=== PATIENT | female | born 1950 | race American Indian/Alaskan Native ===

== ENCOUNTER 2017-11-21 00:36 | Emergency (ER) | payer MEDICARE ==
[2017-11-21 01:10] VITALS: BP 165/68
[2017-11-21] MEDS ORDERED: ASPIRIN PO ONE (01:11)
[2017-11-21] MEDS ORDERED: PEPCID IV ONE (01:26)
[2017-11-21] MEDS ORDERED: ULTRAM PO ONE (01:26)
[2017-11-21] MEDS ORDERED: ALUM-MAG HYDROX-SIMETH 200-200-20MG/5ML PO ONE (01:27)
[2017-11-21 01:45] LABS: Basophils # (Auto) 0.1 K/mm3 (0.0-0.1); Eosinophils % (Auto) 0.6 % (0.0-4.3); Hematocrit 33.2 % (30.3-42.9); Hemoglobin 11.3 gm/dl (10.1-14.3); Lymphocytes % (Auto) 29.5 % (13.4-35.0); Mean Corpuscular HGB Conc 34 % (30-34); Mean Corpuscular Hemoglobin 29 pg (28-32); Mean Corpuscular Volume 86 fl (79-97); Monocytes # (Auto) 0.5 K/mm3 (0.0-0.8); Monocytes % (Auto) 6.8 % (0.0-7.3); Platelet Count 236 K/mm3 (140-440); Red Blood Count 3.88 M/mm3 (3.65-5.03); Red Cell Distribution Width 14.4 % (13.2-15.2)
[2017-11-21 02:22] LABS: BUN/Creatinine Ratio 13; Blood Urea Nitrogen 12 mg/dL (7-17); Calcium 9.3 mg/dL (8.4-10.2); Hemolysis Index 4
--- NOTE | 2017-11-21 02:28 | XRay Report ---
FINAL REPORT EXAM: XR ABD SERIES W CXR 1V HISTORY: chest and epigastric pain TECHNIQUE: Frontal radiograph of the chest and supine and upright views of the abdomen were obtained. PRIORS: None FINDINGS: Chest: There are no focal consolidations to suggest pneumonia. No pneumothorax or large pleural effusion. Cardiac silhouette and mediastinal structures are unremarkable. Abdomen: Nonobstructive bowel gas pattern. No free intraperitoneal air appreciated. No acute osseous abnormality identified. IMPRESSION: No radiographic evidence of acute cardiopulmonary disease. Nonobstructive bowel gas pattern.
[2017-11-21] MEDS ORDERED: ZOFRAN ODT PO ONE (02:35)
--- NOTE | 2017-11-21 02:59 | Emergency Department Report ---
ED Abdominal Pain HPI - General Chief Complaint: Chest Pain Stated Complaint: CHEST PAIN Time Seen by Provider: 11/21/17 01:03 Source: EMS Mode of arrival: Stretcher Limitations: No Limitations - History of Present Illness Initial Comments: Patient is a 67-year-old female past medical history hypertension who is complaining of chest discomfort and epigastric discomfort for the past week. Patient states this only occurs when she lays down to go to sleep she's been having trouble sleeping. Patient states starts in her epigastrium and radiates into the upper chest. Patient states she does have some nausea. Patient states in the daytime when she is active she is not having any pain. Patient states that while laying flat she does also have a mild cough and some shortness of breath. Patient rates her pain a 10 out of 10 in severity. Patient states she could not go sleep tonight at laying down. Patient states she sitting upright she feels slightly improved. Severity scale (0 -10): 5 - Related Data Previous Rx's Medication Instructions Recorded Last Taken Type Ondansetron [Zofran Odt] 4 mg PO Q8HR PRN #10 tab.rapdis 11/21/17 Unknown Rx Pantoprazole [Protonix TAB] 20 mg PO DAILY #14 tablet. 11/21/17 Unknown Rx Allergies Allergy/AdvReac Type Severity Reaction Status Date / Time No Known Allergies Allergy Verified 11/21/17 01:10 ED Review of Systems ROS: Stated complaint: CHEST PAIN Other details as noted in HPI Comment: All other systems reviewed and negative ED Past Medical Hx - Past Medical History Hx Hypertension: Yes Additional medical history: Glaucoma bothe eyes - Surgical History Additional Surgical History: Hysterectomy, Eye surgery Cataract removal with IOL - Social History Smoking Status: Never Smoker Substance Use Type: None - Medications Home Medications: Home Medications Medication Instructions Recorded Confirmed Last Taken Type Ondansetron [Zofran Odt] 4 mg PO Q8HR PRN #10 tab.rapdis 11/21/17 Unknown Rx Pantoprazole [Protonix TAB] 20 mg PO DAILY #14 tablet. 11/21/17 Unknown Rx ED Physical Exam - General Limitations: No Limitations General appearance: alert, in no apparent distress - Head Head exam: Present: atraumatic, normocephalic - Eye Eye exam: Present: normal appearance - ENT ENT exam: Present: mucous membranes moist - Neck Neck exam: Present: normal inspection - Respiratory Respiratory exam: Present: normal lung sounds bilaterally. Absent: respiratory distress, wheezes, rales, rhonchi - Cardiovascular Cardiovascular Exam: Present: regular rate, normal rhythm. Absent: systolic murmur, diastolic murmur, rubs, gallop - GI/Abdominal GI/Abdominal exam: Present: soft, tenderness (mild epigastric tenderness), normal bowel sounds. Absent: distended, guarding, rebound - Extremities Exam Extremities exam: Present: normal inspection - Back Exam Back exam: Present: normal inspection - Neurological Exam Neurological exam: Present: alert, oriented X3 - Psychiatric Psychiatric exam: Present: normal affect, normal mood - Skin Skin exam: Present: warm, dry, intact, normal color. Absent: rash ED Course Vital Signs 11/21/17 01:05 Temperature 98.7 F Pulse Rate 104 H Blood Pressure 165/68 O2 Sat by Pulse 100 Oximetry ED Medical Decision Making - Lab Data Result diagrams: 11/21/17 01:28 11/21/17 01:28 Lab Results 11/21/17 11/21/17 11/21/17 Range/Units 01:28 01:28 01:30 WBC 6.8 (4.5-11.0) K/mm3 RBC 3.88 (3.65-5.03) M/mm3 Hgb 11.3 (10.1-14.3) gm/dl Hct 33.2 (30.3-42.9) % MCV 86 (79-97) fl MCH 29 (28-32) pg MCHC 34 (30-34) % RDW 14.4 (13.2-15.2) % Plt Count 236 (140-440) K/mm3 Lymph % (Auto) 29.5 (13.4-35.0) % Luna % (Auto) 6.8 (0.0-7.3) % Eos % (Auto) 0.6 (0.0-4.3) % Baso % (Auto) 1.0 (0.0-1.8) % Lymph # 2.0 (1.2-5.4) K/mm3 Luna # 0.5 (0.0-0.8) K/mm3 Eos # 0.0 (0.0-0.4) K/mm3 Baso # 0.1 (0.0-0.1) K/mm3 Seg Neutrophils % 62.1 (40.0-70.0) % Seg Neutrophils # 4.2 (1.8-7.7) K/mm3 Sodium 143 (137-145) mmol/L Potassium 3.7 (3.6-5.0) mmol/L Chloride 103.2 (98-107) mmol/L Carbon Dioxide 26 (22-30) mmol/L Anion Gap 18 mmol/L BUN 12 (7-17) mg/dL Creatinine 0.9 (0.7-1.2) mg/dL Estimated GFR > 60 ml/min BUN/Creatinine Ratio 13 % Glucose 177 H (65-100) mg/dL Calcium 9.3 (8.4-10.2) mg/dL Troponin T < 0.010 (0.00-0.029) ng/mL Lipase 43 (13-60) units/L - EKG Data -: EKG Interpreted by Me - EKG Data Interpretation: other (EKG shows sinus rhythm rate of 97, axis normal intervals no ST segment elevation or depressions time interpretation is 1:15) - Radiology Data Abdominal x-ray with chest shows no acute abnormality - Medical Decision Making The patient patient's symptoms most closely consistent with GERD. Patient's daughter actually states that she started being appointment to see a manager [facility]. Patient states GI cocktail actually made her slightly nauseous given some Zofran she was also given IV Pepcid was actually did start making her feel better. Patient be discharged home with Protonix and Zofran. Critical care attestation.: If time is entered above; I have spent that time in minutes in the direct care of this critically ill patient, excluding procedure time. ED Disposition Clinical Impression: GERD (gastroesophageal reflux disease) Qualifiers: Esophagitis presence: without esophagitis Qualified Code(s): K21.9 - Gastro- esophageal reflux disease without esophagitis Disposition: DC-01 TO HOME OR SELFCARE Is pt being admited?: No Does the pt Need Aspirin: No Condition: Stable Instructions: Diet for Ulcers and Gastritis (ED), Gastroesophageal Reflux Disease (ED) Prescriptions: Ondansetron [Zofran Odt] 4 mg PO Q8HR PRN #10 tab.rapdis PRN Reason: Nausea Pantoprazole [Protonix TAB] 20 mg PO DAILY #14 tablet.dr Referrals: BILLY PERLA MD [Primary Care Provider] - 3-5 Days
[2017-11-21] MEDS ORDERED: NORCO 5/325 PO ONE (03:12)
== END 2017-11-21 03:00 | disposition home or self-care (01) ==
LOC: ED 00:36
DX: K21.9 Gastro-esophageal reflux disease without esophagitis (principal); I10 Essential (primary) hypertension
CPT/HCPCS: 36415; 74022; 80048; 83690; 84484; 85025; 93005; 93010; 96374; Q0162